=== PATIENT | male | born 2000 ===

== ENCOUNTER 2021-07-27 12:53 | Emergency (ER) | payer SELFPAY ==
[2021-07-27] MEDS ORDERED: Boostrix 0.5 ML (Tdap) VIAL ONE (13:55)
[2021-07-27] MEDS ORDERED: Ketorolac Tromethamine 30 MG/ML VIAL ONE (14:12)
== END 2021-07-27 16:00 | disposition home or self-care (01) ==
LOC: ERS 12:53
DX: S61.231A Puncture wound without foreign body of left index finger without damage to nail, initial encounter (principal); F17.290 Nicotine dependence, other tobacco product, uncomplicated; W29.4XXA Contact with nail gun, initial encounter; Z23 Encounter for immunization
CPT/HCPCS: 90471; 90715; 96372; J1885